=== PATIENT | male | born 1970 | race Caucasian/White ===

== ENCOUNTER 2018-11-01 21:16 | Emergency (ER) | payer SELFPAY ==
[2018-11-01] MEDS ORDERED: DOXYCYCLINE HYCLATE 100 MG TABLET PO ONE (22:37)
[2018-11-01] MEDS ORDERED: DIPH/PERTUSS(ACELL)/TETANUS VAC/PF 0.5 ML SYR (>=10YO) IM ONE (22:38)
[2018-11-01 23:10] VITALS: BP 138/92
--- NOTE | 2018-11-01 23:47 | ER Document Report ---
ED Hand/Wrist Injury - General Chief Complaint: Hand Injury Stated Complaint: FINGER INJURY Time Seen by Provider: 11/01/18 22:05 Mode of Arrival: Ambulatory Notes: Patient is a 48-year-old male comes emergency room with complaint of fishhook in his left middle finger. Patient states he was fishing the day prior to his arrival and he got caught by a spoon type of a fishing or with a trouble hook. One hook was embedded in the distal tip of the left index finger on the lateral side. Patient states he attempted to try to get on his own but gave up after the became too painful. TRAVEL OUTSIDE OF THE [place] IN LAST 30 DAYS: No - HPI Injury to: Middle finger Onset: Just prior to arrival Where: Outdoors Timing: Constant Quality of pain: Sharp, Stabbing, Throbbing Severity: Moderate Pain Level: 3 Past Medical History - General Information source: Patient - Social History Smoking Status: Current Every Day Smoker Cigarette use (# per day): Yes - 1 pack a day Chew tobacco use (# tins/day): No Smoking Education Provided: No Frequency of alcohol use: None Drug Abuse: None Lives with: Family Family History: Reviewed & Not Pertinent Patient has suicidal ideation: No Patient has homicidal ideation: No Renal/ Medical History: Denies: Hx Peritoneal Dialysis Review of Systems - Review of Systems Constitutional: No symptoms reported EENT: No symptoms reported Cardiovascular: No symptoms reported Respiratory: No symptoms reported Gastrointestinal: No symptoms reported Genitourinary: No symptoms reported Male Genitourinary: No symptoms reported Musculoskeletal: See HPI, Muscle pain Skin: See HPI, Other - Cooking finger Hematologic/Lymphatic: No symptoms reported Neurological/Psychological: No symptoms reported -: Yes All other systems reviewed and negative Physical Exam - Vital signs Vitals: Temp Pulse Resp BP Pulse Ox 98.1 F 74 20 135/86 H 95 11/01/18 21:25 11/01/18 21:25 11/01/18 21:25 11/01/18 21:25 11/01/18 21:25 Interpretation: Hypertensive - Notes Notes: PHYSICAL EXAMINATION: GENERAL: Well-appearing, well-nourished and in no acute distress. HEAD: Atraumatic, normocephalic. LUNGS: Breath sounds clear to auscultation bilaterally and equal. No wheezes rales or rhonchi. HEART: Regular rate and rhythm without murmurs Musculoskeletal: Patient has a trouble hook examination patient's area of concern is his left middle finger on the medial aspect of the distal tip. Patient wore stuck on the medial aspect of the finger with only one hook. There is no except to the hook on Maryam at this point. The finger has full range of motion as good distal sensation and has good cap refill in the nailbed of the finger. NEUROLOGICAL: Normal speech, normal gait. Normal sensory, motor exams PSYCH: Normal mood, normal affect. SKIN: See musculoskeletal above for full description Course - Re-evaluation Re-evalutation: 11/01/18 23:52 Procedure note for this removal. I cleaned the area with Betadine then injected proximally 1 mL of 1% lidocaine into and near where the hook made at its entrance point on the medial aspect of the left middle finger. Then trimmed off the other 2 barbs as not to hurt anyone and we cut the splint away from the hook. I attempted to slide a an 18- gauge over the top of the lisandro and slide it back but was unsuccessful after about 4 tries. I then ran the lisandro portion of it through the finger causing an exit point we snipped it off with a pair of wire cutters and backed it out simply. The finger was cleaned with Betadine and water solution and then Band- Aid applied. Patient tolerated the procedure without any problems. - Vital Signs Vital signs: Temp Pulse Resp BP Pulse Ox 98.1 F 67 16 138/92 H 98 11/01/18 21:25 11/01/18 23:04 11/01/18 23:04 11/01/18 23:04 11/01/18 23:04 Discharge - Discharge Clinical Impression: [place] injury to finger Qualifiers: Encounter type: initial encounter Laterality: left Qualified Code(s): S69.92XA - Unspecified injury of left wrist, hand and finger(s), initial encounter Disposition: HOME, SELF-CARE Additional Instructions: Home and soak finger in warm soapy water 3 times a day for the next 2 days. You can still use ibuprofen and Tylenol for swelling and pain. Take all of the antibiotics is highly important with this type of a puncture wound. I have given you the good Rx prescription line trocar use that in order to get the medications and I believe this at [facility] was the cheapest place to go. Should you have any concerns or problems return to ER for recheck. Prescriptions: Doxycycline Hyclate 100 mg PO BID #20 tablet.dr Forms: Elevated Blood Pressure, Smoking Cessation Education
== END 2018-11-01 23:53 | disposition home or self-care (01) ==
LOC: ER 21:16
DX: S61.243A Puncture wound with foreign body of left middle finger without damage to nail, initial encounter (principal); W26.8XXA Contact with other sharp object(s), not elsewhere classified, initial encounter; Y93.19 Activity, other involving water and watercraft
CPT/HCPCS: 90471; 90715; 99283